=== PATIENT | female | born 1970 | race African-American/Black ===

== ENCOUNTER 2023-05-25 10:23 | Emergency (ER) | payer OTHER ==
[~2023-05-25] VITALS: Ht 154.9 cm; Wt 81.6 kg
[2023-05-25 10:30] VITALS: O2SAT 100
[2023-05-25] MEDS ORDERED: KETOROLAC 30MG/ML VIAL IM ONE (11:30)
[2023-05-25 13:59] LABS: CLARITY URINE CLOUDY (CLEAR); COLOR URINE YELLOW (YELLOW); GLUCOSE URINE NEGATIVE (NEGATIVE); KETONES URINE 1+ (NEGATIVE); LEUKOCYTE ESTERASE URINE NEGATIVE (NEGATIVE); NITRITE URINE NEGATIVE (NEGATIVE); OCCULT BLOOD URINE NEGATIVE (NEGATIVE); PROTEIN URINE NEGATIVE (NEGATIVE); SPECIFIC GRAVITY URINE 1.021 (1.005-1.030); UROBILINOGEN URINE 0.2 E.U./dL (0.2-1.0)
[2023-05-25] MEDS ORDERED: KETOROLAC 30MG/ML VIAL IM NR (14:00)
[2023-05-25 14:40] LABS: BACTERIA URINE 3+; RBC URINE 0-2 /hpf (0-2); SQUAMOUS EPITHELIAL CELL URINE 3+ /lpf (RARE/1+); WBC URINE 0-2 /hpf (0-2); YEAST URINE NONE SEEN
[2023-05-25] MEDS ORDERED: SODIUM CHLORIDE 0.9% 500 ML IV ONE (14:45)
[2023-05-25 16:00] LABS: BASOPHILS % 0.4 % (0.0-2.0); EOSINOPHILS % 1.2 % (0.0-5.0); HEMATOCRIT. 40.9 % (36.0-48.0); HEMOGLOBIN. 13.6 g/dL (12.0-16.0); LYMPHOCYTES % 8.9 % (20.0-50.0); MEAN CORPUSCULAR HEMOGLOBIN 31.7 pg (28.0-32.0); MEAN CORPUSCULAR HGB CONC 33.3 g/dL (31.0-37.0); MEAN CORPUSCULAR VOLUME 95.2 fL (81.0-99.0); MEAN PLATELET VOLUME 8.3 fl (7.4-10.4); MONOCYTES % 9.9 % (2.0-8.0); NEUTROPHILS % 79.6 % (40.0-76.0); PLATELET 238 x1000/uL (130-400); RED CELL DISTRIBUTION WIDTH 13.1 % (11.6-14.6); WHITE BLOOD COUNT 4.7 x1000/uL (4.5-11.0)
[2023-05-25 16:14] LABS: CALCIUM 8.8 mg/dL (8.7-10.4); CARBON DIOXIDE 25 mEq/L (21-32); CHLORIDE 108 mEq/L (98-107); CREATININE 0.6 mg/dL (0.6-1.0); GLUCOSE 118 mg/dL (70-105); POTASSIUM 3.7 mEq/L (3.5-5.1); SODIUM 138 mEq/L (136-145); UREA NITROGEN BLOOD 10 mg/dL (9-23)
[2023-05-25 16:31] VITALS: BP 163/93; PULSE 108; RESP 16; TEMP 98.5
[2023-05-25] MEDS ORDERED: IBUP-2029 MT (16:34)
== END 2023-05-25 17:09 | disposition home or self-care (01) ==
LOC: ER 10:23
DX: B34.9 Viral infection, unspecified (principal); I10 Essential (primary) hypertension; Z20.822 Contact with and (suspected) exposure to COVID-19
CPT/HCPCS: 80048; 81003; 85025; 87804 ×2; 36415; 96360; 96372; 99283; 87426; J1885; J7030; C9803; Z7610 ×4

== ENCOUNTER 2024-02-01 19:24 | Emergency (ER) | payer SELFPAY ==
[~2024-02-01] VITALS: Ht 154.9 cm; Wt 80.6 kg
[~2024-02-01 19:24] MED LIST: IBUP-2029 MT
[2024-02-01 19:31] VITALS: BP_SYST 187; PULSE 110; RESP 20; TEMP 98.3; O2SAT 100
== END 2024-02-01 20:11 | disposition left against medical advice (07) ==
LOC: ER 19:24
DX: R07.89 Other chest pain (principal); Z53.21 Procedure and treatment not carried out due to patient leaving prior to being seen by health care provider
CPT/HCPCS: 71045; 93005; 99283

== ENCOUNTER 2024-11-28 14:25 | Inpatient (IN) | payer MEDICAID, OTHER ==
[~2024-11-28] VITALS: Ht 154.9 cm; Wt 74.8 kg
[2024-11-28 15:25] LABS: BASOPHILS % 0.4 % (0.0-2.0); EOSINOPHILS % 1.9 % (0.0-5.0); HEMATOCRIT. 39.4 % (36.0-48.0); HEMOGLOBIN. 13.6 g/dL (12.0-16.0); MEAN CORPUSCULAR HEMOGLOBIN 34.2 pg (28.0-32.0); MEAN CORPUSCULAR HGB CONC 34.5 g/dL (31.0-37.0); MEAN CORPUSCULAR VOLUME 99.2 fL (81.0-99.0); MEAN PLATELET VOLUME 7.4 fl (7.4-10.4); NEUTROPHILS % 67.7 % (40.0-76.0); PLATELET 232 x1000/uL (130-400); RED BLOOD CELL COUNT 3.97 mill/uL (4.2-5.4); RED CELL DISTRIBUTION WIDTH 14.3 % (11.6-14.6); WHITE BLOOD COUNT 5.3 x1000/uL (4.5-11.0)
[2024-11-28] MEDS: SODIUM CHLORIDE 0.9% 1,000 ML IV ONE (15:26)
[2024-11-28] MEDS: ONDANSETRON HCL 4MG/2ML INJ IV STA (15:26)
[2024-11-28] MEDS: KETOROLAC 30MG/ML VIAL IV STA (15:26)
[2024-11-28] MEDS: ACETAMINOPHEN 325MG TABLET PO STA (15:27)
[2024-11-28] MEDS: MAGNESIUM/ALUMINUM HYDROXIDE/SIMETHICONE 30ML UDC PO STA (15:27)
[2024-11-28 15:33] LABS: CHLORIDE 105 mEq/L (98-107); SODIUM 140 mEq/L (136-145)
[2024-11-28 15:34] LABS: CALCIUM 9.2 mg/dL (8.7-10.4); CARBON DIOXIDE 27 mEq/L (21-32)
[2024-11-28 15:37] LABS: INR 1.1; PROTHROMBIN TIME 11.7 sec (9.6-11.0)
[2024-11-28 15:39] LABS: CREATININE 0.7 mg/dL (0.6-1.0); GLUCOSE 120 mg/dL (70-105); UREA NITROGEN BLOOD 7 mg/dL (9-23)
[2024-11-28 15:41] LABS: ALANINE AMINOTRANSFERASE 18 IU/L (10-49); ALBUMIN 4.2 g/dL (3.2-4.8); ASPARTATE AMINOTRANSFERASE 51 IU/L (<34); BILIRUBIN DIRECT 0.6 mg/dL (<=3.0)
[2024-11-28 15:42] LABS: BILIRUBIN TOTAL 2.1 mg/dL (0.1-1.0); PROTEIN TOTAL 7.2 g/dL (6.0-8.3)
[2024-11-28 15:44] LABS: TROPONIN I HIGH SENSITIVITY < 4 ng/L (3.0-34)
[2024-11-28 15:48] LABS: POTASSIUM 2.8 mEq/L (3.5-5.1)
[2024-11-28] MEDS: KCL 10MEQ/50ML PREMIX 50 ML IV SCH (16:35)
[2024-11-28] MEDS: POTASSIUM CHLORIDE 20MEQ TABLET SR PO ONE (16:51)
[2024-11-28] MEDS ORDERED: MORPHINE SULFATE 2 MG/ML INJ (NOT FOR IM USE) IV SCH (18:30)
[2024-11-28] MEDS: HYDRALAZINE 20MG/ML VIAL IV PRN (18:51)
[2024-11-28] MEDS: MORPHINE SULFATE 4 MG/ML INJ (FOR IV/IM USE) IV SCH (18:51)
[2024-11-28] MEDS: ONDANSETRON HCL 4MG/2ML INJ IV SCH (18:51)
[2024-11-28 19:21] LABS: PHOSPHORUS 2.1 mg/dL (2.5-4.9)
[2024-11-28 19:23] LABS: T4 FREE 1.37 ng/dL (0.89-1.76); THYROID STIMULATING HORMONE 1.63 uIU/mL (0.55-4.78)
[2024-11-28 20:00] VITALS: BP 176/105; PULSE 96; RESP 22; TEMP 36.7; O2SAT 99
[2024-11-28 20:30] VITALS: BP 176/105; PULSE 96; RESP 22; TEMP 36.8
[2024-11-28] MEDS: CLONIDINE 0.1MG TABLET PO PRN (20:54)
[2024-11-28] MEDS: HYDROCODONE/ACETAMINOPHEN 10/325MG TABLET PO PRN (20:54)
[2024-11-28] MEDS ORDERED: NALOXONE HCL 0.4MG/ML VIAL IV PRN (21:00)
[2024-11-28] MEDS: PIPERACILLIN/TAZO 3.375G/50ML 50 ML IV SCH (22:22)
[2024-11-29] VITALS: BP 115/55; PULSE 92; RESP 20; TEMP 36.6; O2SAT 98
[2024-11-29 00:32] LABS: CLARITY URINE CLEAR (CLEAR); COLOR URINE ORANGE (YELLOW); GLUCOSE URINE NEGATIVE (NEGATIVE); KETONES URINE 1+ (NEGATIVE); LEUKOCYTE ESTERASE URINE NEGATIVE (NEGATIVE); NITRITE URINE POSITIVE (NEGATIVE); OCCULT BLOOD URINE NEGATIVE (NEGATIVE); PROTEIN URINE 1+ (NEGATIVE); SPECIFIC GRAVITY URINE 1.034 (1.005-1.030)
[2024-11-29 00:45] LABS: *AMPHETAMINES SCREEN URINE NEGATIVE (NEGATIVE); *BARBITURATES SCREEN URINE NEGATIVE (NEGATIVE); *BENZODIAZEPINES SCREEN URINE NEGATIVE (NEGATIVE); *COCAINE SCREEN URINE NEGATIVE (NEGATIVE); CANNABINOID URINE SCREEN NEGATIVE (NEGATIVE); ECSTASY MDMA SCREEN URINE NEGATIVE (NEGATIVE); METHADONE URINE SCREEN NEGATIVE (NEGATIVE); OPIATES URINE SCREEN PRESUMPTIVE POSITIVE (NEGATIVE); PHENCYCLIDINE URINE SCREEN NEGATIVE (NEGATIVE)
[2024-11-29 00:48] LABS: SQUAMOUS EPITHELIAL CELL URINE 1+ /lpf (RARE/1+)
[2024-11-29 00:49] LABS: WBC URINE 0-2 /hpf (0-2)
[2024-11-29 00:50] LABS: BACTERIA URINE TRACE; RBC URINE 0-2 /hpf (0-2)
[2024-11-29] MEDS: PIPERACILLIN/TAZO 3.375G/50ML 50 ML IV SCH (06:06)
[2024-11-29 06:30] VITALS: BP 141/92; PULSE 83; RESP 18; TEMP 36; O2SAT 99
[2024-11-29] MEDS: SODIUM CHLORIDE 0.9% 1,000 ML IV SCH (07:30)
[2024-11-29 07:41] LABS: CHLORIDE 106 mEq/L (98-107); SODIUM 141 mEq/L (136-145)
[2024-11-29 07:42] LABS: CARBON DIOXIDE 27 mEq/L (21-32)
[2024-11-29 07:43] LABS: BASOPHILS % 0.6 % (0.0-2.0); CALCIUM 8.5 mg/dL (8.7-10.4); EOSINOPHILS % 3.9 % (0.0-5.0); HEMATOCRIT. 36.8 % (36.0-48.0); HEMOGLOBIN. 12.4 g/dL (12.0-16.0); LYMPHOCYTES % 29.4 % (20.0-50.0); MEAN CORPUSCULAR HEMOGLOBIN 33.5 pg (28.0-32.0); MEAN CORPUSCULAR HGB CONC 33.8 g/dL (31.0-37.0); MEAN CORPUSCULAR VOLUME 99.3 fL (81.0-99.0); MEAN PLATELET VOLUME 7.9 fl (7.4-10.4); MONOCYTES % 5.7 % (2.0-8.0); NEUTROPHILS % 60.4 % (40.0-76.0); PLATELET 198 x1000/uL (130-400); RED BLOOD CELL COUNT 3.71 mill/uL (4.2-5.4); RED CELL DISTRIBUTION WIDTH 14.6 % (11.6-14.6); WHITE BLOOD COUNT 4.4 x1000/uL (4.5-11.0)
[2024-11-29 07:47] LABS: CREATININE 0.6 mg/dL (0.6-1.0); GLUCOSE 98 mg/dL (70-105)
[2024-11-29 07:48] LABS: UREA NITROGEN BLOOD 7 mg/dL (9-23)
[2024-11-29 08:00] VITALS: BP 151/101; PULSE 82; RESP 22; TEMP 36.6; O2SAT 100
[2024-11-29] MEDS: ONDANSETRON HCL 4MG/2ML INJ IV PRN (08:26)
[2024-11-29] MEDS: PANTOPRAZOLE SODIUM 40 MG/VIAL IV SCH (08:26)
[2024-11-29] MEDS: POTASSIUM PHOSPHATE 15 MMOL in DEXT 5% WATER 245 ML IV NR (08:33)
[2024-11-29] MEDS: POTASSIUM CHLORIDE 20MEQ TABLET SR PO NR (09:49)
[2024-11-29 12:00] VITALS: BP 190/110; PULSE 82; RESP 20; TEMP 36.9; O2SAT 99
[2024-11-29] MEDS: ACETAMINOPHEN 325MG TABLET PO PRN (13:27)
[2024-11-29 15:52] VITALS: BP 130/86; PULSE 73; RESP 19; TEMP 36.7; O2SAT 100
[2024-11-29] MEDS: KETOROLAC 30MG/ML VIAL IV PRN (18:22)
[2024-11-29 20:00] VITALS: BP 132/87; PULSE 72; RESP 18; TEMP 36.7; O2SAT 97
[2024-11-30] VITALS (7 sets, daily range): BP systolic 134–190; BP diastolic 72–109; PULSE 81–101; RESP 16–22; TEMP 35.8–36.8; O2SAT 97–100
[2024-11-30 10:46] LABS: BASOPHILS % 0.2 % (0.0-2.0); EOSINOPHILS % 1.7 % (0.0-5.0); HEMATOCRIT. 36.5 % (36.0-48.0); HEMOGLOBIN. 12.3 g/dL (12.0-16.0); LYMPHOCYTES % 13.6 % (20.0-50.0); MEAN CORPUSCULAR HEMOGLOBIN 33.7 pg (28.0-32.0); MEAN CORPUSCULAR HGB CONC 33.8 g/dL (31.0-37.0); MEAN CORPUSCULAR VOLUME 99.9 fL (81.0-99.0); MEAN PLATELET VOLUME 7.4 fl (7.4-10.4); NEUTROPHILS % 79.5 % (40.0-76.0); PLATELET 193 x1000/uL (130-400); RED BLOOD CELL COUNT 3.65 mill/uL (4.2-5.4); RED CELL DISTRIBUTION WIDTH 14.6 % (11.6-14.6); WHITE BLOOD COUNT 4.8 x1000/uL (4.5-11.0)
[2024-11-30 11:04] LABS: CHLORIDE 104 mEq/L (98-107); POTASSIUM 3.4 mEq/L (3.5-5.1); SODIUM 142 mEq/L (136-145)
[2024-11-30 11:05] LABS: CARBON DIOXIDE 26 mEq/L (21-32)
[2024-11-30 11:06] LABS: CALCIUM 8.4 mg/dL (8.7-10.4)
[2024-11-30 11:10] LABS: ALANINE AMINOTRANSFERASE 31 IU/L (10-49); AMYLASE 70 IU/L (30-118)
[2024-11-30 11:11] LABS: CREATININE 0.5 mg/dL (0.6-1.0); GLUCOSE 102 mg/dL (70-105); UREA NITROGEN BLOOD 7 mg/dL (9-23)
[2024-11-30 11:12] LABS: ALBUMIN 3.7 g/dL (3.2-4.8); ASPARTATE AMINOTRANSFERASE 99 IU/L (<34)
[2024-11-30 11:13] LABS: BILIRUBIN TOTAL 1.6 mg/dL (0.1-1.0); PROTEIN TOTAL 6.4 g/dL (6.0-8.3)
[2024-11-30] MEDS: POTASSIUM CHLORIDE 20MEQ TABLET SR PO SCH (17:04)
[2024-11-30] MEDS: MORPHINE SULFATE 2 MG/ML INJ (NOT FOR IM USE) IV PRN (18:41)
[2024-11-30] MEDS: ZOLPIDEM TARTRATE 5MG TABLET PO PRN (22:14)
[2024-12-01] VITALS (8 sets, daily range): BP systolic 147–176; BP diastolic 76–99; PULSE 75–97; RESP 16–20; TEMP 36.4–36.7; O2SAT 75–100
[2024-12-01 07:00] LABS: BASOPHILS % 0.2 % (0.0-2.0); EOSINOPHILS % 3.2 % (0.0-5.0); HEMOGLOBIN. 11.6 g/dL (12.0-16.0); LYMPHOCYTES % 19.4 % (20.0-50.0); MEAN CORPUSCULAR HEMOGLOBIN 33.8 pg (28.0-32.0); MEAN CORPUSCULAR HGB CONC 34.1 g/dL (31.0-37.0); MEAN PLATELET VOLUME 8.1 fl (7.4-10.4); MONOCYTES % 6.3 % (2.0-8.0); NEUTROPHILS % 70.9 % (40.0-76.0); PLATELET 177 x1000/uL (130-400); RED BLOOD CELL COUNT 3.43 mill/uL (4.2-5.4); RED CELL DISTRIBUTION WIDTH 14.5 % (11.6-14.6); WHITE BLOOD COUNT 4.5 x1000/uL (4.5-11.0)
[2024-12-01 07:18] LABS: CALCIUM 8.4 mg/dL (8.7-10.4); CARBON DIOXIDE 24 mEq/L (21-32); CHLORIDE 102 mEq/L (98-107); POTASSIUM 3.4 mEq/L (3.5-5.1); SODIUM 139 mEq/L (136-145)
[2024-12-01 07:23] LABS: CREATININE 0.4 mg/dL (0.6-1.0); GLUCOSE 91 mg/dL (70-105)
[2024-12-01 07:24] LABS: ALANINE AMINOTRANSFERASE 23 IU/L (10-49); ALBUMIN 3.5 g/dL (3.2-4.8); UREA NITROGEN BLOOD < 5 mg/dL (9-23)
[2024-12-01 07:25] LABS: ASPARTATE AMINOTRANSFERASE 48 IU/L (<34); PROTEIN TOTAL 5.9 g/dL (6.0-8.3)
[2024-12-01] MEDS: POTASSIUM CHLORIDE 20MEQ TABLET SR PO NR (10:21)
[2024-12-01] MEDS: AMLODIPINE 10MG TABLET PO SCH (13:45)
[2024-12-01] MEDS: DEXT 5%/0.45% NACL 1000ML 1,000 ML IV SCH (13:54)
[2024-12-01] MEDS ORDERED: HYDRALAZINE 10 MG in SODIUM CHLORIDE 0.9% 49.5 ML IV PRN (14:15)
[2024-12-01] MEDS: DOCUSATE SODIUM 250MG CAPSULE PO SCH (15:50)
[2024-12-02] VITALS: BP 157/77; PULSE 90; RESP 18; TEMP 36.8; O2SAT 94
[2024-12-02 04:00] VITALS: BP 167/84; PULSE 85; RESP 18; TEMP 36.8; O2SAT 95
[2024-12-02 08:00] VITALS: BP 157/93; PULSE 74; RESP 17; TEMP 36.2; O2SAT 100
[2024-12-02 12:00] VITALS: BP 147/85; PULSE 82; RESP 18; TEMP 36.5; O2SAT 100
[2024-12-02] MEDS ORDERED: POTASSIUM CHLORIDE 20MEQ TABLET SR PO ONE (12:00)
[2024-12-02 12:02] LABS: BASOPHILS % 0.3 % (0.0-2.0); EOSINOPHILS % 2.3 % (0.0-5.0); HEMATOCRIT. 35.1 % (36.0-48.0); LYMPHOCYTES % 15.8 % (20.0-50.0); MEAN CORPUSCULAR HEMOGLOBIN 33.6 pg (28.0-32.0); MEAN CORPUSCULAR HGB CONC 34.2 g/dL (31.0-37.0); MEAN CORPUSCULAR VOLUME 98.4 fL (81.0-99.0); MEAN PLATELET VOLUME 7.7 fl (7.4-10.4); MONOCYTES % 8.4 % (2.0-8.0); NEUTROPHILS % 73.2 % (40.0-76.0); PLATELET 217 x1000/uL (130-400); RED BLOOD CELL COUNT 3.57 mill/uL (4.2-5.4); RED CELL DISTRIBUTION WIDTH 14.5 % (11.6-14.6); WHITE BLOOD COUNT 4.6 x1000/uL (4.5-11.0)
[2024-12-02 12:27] LABS: CHLORIDE 101 mEq/L (98-107); POTASSIUM 3.2 mEq/L (3.5-5.1); SODIUM 137 mEq/L (136-145)
[2024-12-02 12:28] LABS: CARBON DIOXIDE 26 mEq/L (21-32)
[2024-12-02 12:29] LABS: CALCIUM 8.8 mg/dL (8.7-10.4)
[2024-12-02 12:33] LABS: CREATININE 0.4 mg/dL (0.6-1.0); GLUCOSE 118 mg/dL (70-105)
[2024-12-02 12:34] LABS: UREA NITROGEN BLOOD < 5 mg/dL (9-23)
[2024-12-02 12:35] LABS: ALANINE AMINOTRANSFERASE 19 IU/L (10-49); ALBUMIN 3.6 g/dL (3.2-4.8); ASPARTATE AMINOTRANSFERASE 33 IU/L (<34)
[2024-12-02 12:36] LABS: BILIRUBIN TOTAL 0.7 mg/dL (0.1-1.0); PROTEIN TOTAL 6.3 g/dL (6.0-8.3)
[2024-12-02 16:00] VITALS: BP 141/75; PULSE 74; RESP 20; TEMP 36.3; O2SAT 99
[2024-12-02 20:00] VITALS: BP 162/89; PULSE 74; RESP 18; TEMP 36.2; O2SAT 96
[2024-12-02] MEDS: SENNOSIDES 8.6MG TABLET PO SCH (20:05)
[2024-12-02] MEDS: KETOROLAC 30MG/ML VIAL IV PRN (23:16)
[2024-12-03] VITALS: BP 124/74; PULSE 78; RESP 19; TEMP 36.2; O2SAT 100
[2024-12-03 04:45] VITALS: BP 138/83; PULSE 75; RESP 18; TEMP 36.6; O2SAT 98
[2024-12-03 08:00] VITALS: BP 159/93; PULSE 81; RESP 18; TEMP 36.7; O2SAT 100
[2024-12-03] MEDS: POTASSIUM CHLORIDE 20MEQ TABLET SR PO SCH ×2 (08:29→15:21)
[2024-12-03] MEDS: POLYETHYLENE GLYCOL 3350 (17GM) 1 DOSE PACK PO SCH (08:29)
[2024-12-03 12:00] VITALS: BP 147/87; PULSE 78; RESP 18; TEMP 36.6; O2SAT 98
[2024-12-03 12:53] LABS: BASOPHILS % 0.4 % (0.0-2.0); EOSINOPHILS % 3.8 % (0.0-5.0); HEMATOCRIT. 36.8 % (36.0-48.0); HEMOGLOBIN. 12.6 g/dL (12.0-16.0); LYMPHOCYTES % 24.7 % (20.0-50.0); MEAN CORPUSCULAR HEMOGLOBIN 33.9 pg (28.0-32.0); MEAN CORPUSCULAR HGB CONC 34.3 g/dL (31.0-37.0); MEAN CORPUSCULAR VOLUME 98.9 fL (81.0-99.0); MEAN PLATELET VOLUME 7.7 fl (7.4-10.4); NEUTROPHILS % 58.1 % (40.0-76.0); PLATELET 245 x1000/uL (130-400); RED BLOOD CELL COUNT 3.72 mill/uL (4.2-5.4); RED CELL DISTRIBUTION WIDTH 14.6 % (11.6-14.6); WHITE BLOOD COUNT 3.4 x1000/uL (4.5-11.0)
[2024-12-03 13:09] LABS: CHLORIDE 102 mEq/L (98-107); SODIUM 138 mEq/L (136-145)
[2024-12-03 13:10] LABS: CALCIUM 8.9 mg/dL (8.7-10.4); CARBON DIOXIDE 27 mEq/L (21-32)
[2024-12-03 13:15] LABS: CREATININE 0.5 mg/dL (0.6-1.0); GLUCOSE 111 mg/dL (70-105); UREA NITROGEN BLOOD < 5 mg/dL (9-23)
[2024-12-03 13:17] LABS: ALANINE AMINOTRANSFERASE 28 IU/L (10-49); ALBUMIN 3.7 g/dL (3.2-4.8); ASPARTATE AMINOTRANSFERASE 64 IU/L (<34)
[2024-12-03 13:18] LABS: BILIRUBIN TOTAL 0.7 mg/dL (0.1-1.0); PROTEIN TOTAL 6.6 g/dL (6.0-8.3)
[2024-12-03] MEDS ORDERED: FAMO20TA8 MT (14:16)
[2024-12-03 15:00] VITALS: BP 140/84; PULSE 86; TEMP 98.8; O2SAT 99
== END 2024-12-03 16:01 | disposition home or self-care (01) | DRG 241 ==
LOC: ER 14:25 → EDBEDREQTM 16:43 → EDBEDREQ 16:43 → 8WST 20:12 → 8EST 12-01 12:32
PROVIDERS: ADMIT Internal Medicine; ATTEND Internal Medicine
DX: K29.80 Duodenitis without bleeding (principal); K85.80 Other acute pancreatitis without necrosis or infection; K76.0 Fatty (change of) liver, not elsewhere classified; E83.39 Other disorders of phosphorus metabolism; R16.0 Hepatomegaly, not elsewhere classified; E87.6 Hypokalemia; K52.9 Noninfective gastroenteritis and colitis, unspecified; N39.0 Urinary tract infection, site not specified; K57.30 Diverticulosis of large intestine without perforation or abscess without bleeding; K21.9 Gastro-esophageal reflux disease without esophagitis; F17.210 Nicotine dependence, cigarettes, uncomplicated; Z90.49 Acquired absence of other specified parts of digestive tract; Z98.84 Bariatric surgery status
CPT/HCPCS: 36415; 71045; 74176; 80048; 80053; 80061; 80076; 80305; 81003; 82150; 83036; 83735; 84075; 84100; 84439; 84443; 84450; 84460; 84484; 85025; 93005; 93306; 99285; A4606; J0360; J1885; J2270; J2405; J2470; J2543; J3480; J3490; J7030; J7060

== ENCOUNTER 2024-12-11 15:18 | Emergency (ER) | payer MEDICAID ==
[~2024-12-11] VITALS: Ht 162.6 cm; Wt 73.0 kg
[~2024-12-11 15:18] MED LIST changes: +FAMO20TA8 MT
[2024-12-11 15:20] VITALS: O2SAT 99
[2024-12-11 15:27] VITALS: BP 158/106; PULSE 101; RESP 16; TEMP 36.6; O2SAT 97
[2024-12-11 16:02] LABS: BASOPHILS % 1.2 % (0.0-2.0); EOSINOPHILS % 2.5 % (0.0-5.0); HEMATOCRIT. 42.1 % (36.0-48.0); HEMOGLOBIN. 14.3 g/dL (12.0-16.0); LYMPHOCYTES % 28.3 % (20.0-50.0); MEAN PLATELET VOLUME 7.9 fl (7.4-10.4); MONOCYTES % 7.4 % (2.0-8.0); NEUTROPHILS % 60.6 % (40.0-76.0); PLATELET 397 x1000/uL (130-400); RED BLOOD CELL COUNT 4.27 mill/uL (4.2-5.4); RED CELL DISTRIBUTION WIDTH 14.3 % (11.6-14.6)
[2024-12-11 16:26] LABS: CREATININE 0.6 mg/dL (0.6-1.0); UREA NITROGEN BLOOD 7 mg/dL (9-23)
[2024-12-11 16:50] LABS: ASPARTATE AMINOTRANSFERASE 28 IU/L (<34); BILIRUBIN DIRECT 0.2 mg/dL (<=3.0); BILIRUBIN TOTAL 0.7 mg/dL (0.1-1.0); PROTEIN TOTAL 7.6 g/dL (6.0-8.3)
== END 2024-12-11 16:59 | disposition left against medical advice (07) ==
LOC: ER 15:18
DX: R10.13 Epigastric pain (principal); Z53.21 Procedure and treatment not carried out due to patient leaving prior to being seen by health care provider
CPT/HCPCS: 36415; 80048; 80076; 85025; 93005